=== PATIENT | male | born 1975 | race Caucasian/White ===

== ENCOUNTER → 2021-07-05 | Outpatient (CLI) | payer OTHER ==
[~2021-07-05] MED LIST: ADVIL100 M1 PO; GLUCOSAMIN-CHO1 EACH PO; INTEGRA PLUS C1 EACH PO; OXYC1TAB9 PO; PANADOL MAXIMU500 MG PO; TYLENOL325 MG PO; XARELTO10 MG PO
== END | disposition home or self-care (01) ==
LOC: LAB 08:00 → ADM 12:15 → EDSTATUS 07-08 12:15 → AMB-ENDOS 07-08 12:15
PROVIDERS: ATTEND Surgery
DX: U07.1 COVID-19 (principal); R10.13 Epigastric pain

== ENCOUNTER 2023-04-05 07:00 | Inpatient (IN) | payer OTHER ==
[~2023-04-05] VITALS: Ht 182.9 cm; Wt 122.5 kg
[2023-04-05 09:06] LABS: URINE APPEARANCE Clear; URINE BILIRRUBIN Negative (NEGATIVE); URINE BLOOD Negative; URINE COLOR Yellow; URINE GLUCOSE Negative (NEGATIVE); URINE LEUKOCYTE Negative; URINE NITRATE Negative; URINE PROTEIN Negative (NEGATIVE); URINE UROBILINOGEN 0.2 E.U./dl
[2023-04-05 09:09] LABS: URINE BACTERIA 55.4 uL (0.0-1933); URINE EPITHELIAL CELLS 5.6 uL (0.0-38.8); URINE RBC 4.3 uL (0.0-20.8); URINE WBC 6.9 uL (0.0-23.2)
[2023-04-05 09:09] LABS: HEMOGLOBIN 14.4 g/dL (13-16.00); MEAN CELL VOLUME 78.6 fL (80.0-100.00); MEAN CORPUSCULAR HEMOGLOBIN 26.3 pg (27.00-32.0); MEAN CORPUSCULAR HGB CONC 33.5 g/dl (32.0-36.0); PLATELET COUNT 245 K/uL (150-450); RED BLOOD COUNT 5.46 M/uL (4.00-6.00); RED CELL DISTRIBUTION WIDTH 14.9 % (11.5-14.5)
[2023-04-05 09:53] LABS: INR 1.02; PARTIAL THROMBOPLASTIN TIME 30.8 SECONDS (22.0-34.0); PROTHROMBIN TIME 10.7 SECONDS (9.0-11.5)
[2023-04-05 10:06] LABS: ALBUMIN 4.1 gm/dL (3.4-5.0); BILIRUBIN TOTAL 0.57 mg/dL (0.3-1.2); CALCIUM 9.1 mg/dL (8.5-10.1); CREATININE SERUM 0.75 mg/dL (0.70-1.30); GFR 110.69; GLOBULINA 3.4 G/DL (2.4-3.5); POTASSIUM 4.29 mEq/L (3.5-5.1); TOTAL PROTEIN 7.5 gm/dL (6.4-8.2)
[2023-04-10 21:19] LABS: HEMOGLOBIN 12.6 g/dL (13-16.00); RED BLOOD COUNT 4.81 M/uL (4.00-6.00)
[2023-04-11 06:26] LABS: HEMOGLOBIN 12.2 g/dL (13-16.00); MEAN CELL VOLUME 78.5 fL (80.0-100.00); MEAN CORPUSCULAR HEMOGLOBIN 26.6 pg (27.00-32.0); PLATELET COUNT 220 K/uL (150-450); RED BLOOD COUNT 4.59 M/uL (4.00-6.00); RED CELL DISTRIBUTION WIDTH 14.9 % (11.5-14.5)
[2023-04-12 06:42] LABS: HEMATOCRIT 35.5 % (39.0-48.0); HEMOGLOBIN 11.5 g/dL (13-16.00); MEAN CELL VOLUME 79.3 fL (80.0-100.00); MEAN CORPUSCULAR HEMOGLOBIN 25.6 pg (27.00-32.0); MEAN CORPUSCULAR HGB CONC 32.3 g/dl (32.0-36.0); PLATELET COUNT 210 K/uL (150-450); RED BLOOD COUNT 4.48 M/uL (4.00-6.00); RED CELL DISTRIBUTION WIDTH 14.6 % (11.5-14.5)
[2023-04-12] MEDS ORDERED: XARELTO10 MG PO (06:55)
[2023-04-12] MEDS ORDERED: OXYC1TAB9 PO (06:55)
[2023-04-12] MEDS ORDERED: BACTRIM DS TAB1 EACH PO (06:55)
[2023-04-12] MEDS ORDERED: INTEGRA PLUS C1 EACH PO (06:55)
== END 2023-04-12 15:01 | DRG 470 ==
LOC: SURG 04-10 07:00 → O/R 04-10 08:15 → SURH 04-10 19:55
PROVIDERS: ADMIT Orthopaedic Surgery Sports Medicine; ATTEND Orthopaedic Surgery Sports Medicine
PROC: 0SR90JZ Replacement of Right Hip Joint with Synthetic Substitute, Open Approach (ICD-10-PCS; principal; 2023-04-10 07:00)
DX: M16.11 Unilateral primary osteoarthritis, right hip (principal)